=== PATIENT | male | born 1970 | race Caucasian/White ===

== ENCOUNTER 2021-09-01 18:03 | Emergency (ER) | payer OTHER ==
[~2021-09-01] VITALS: Ht 177.8 cm; Wt 93.0 kg
[~2021-09-01 18:03] MED LIST: ALTACE2.5 MG
[2021-09-01] MEDS ORDERED: OMEPRAZOLE 40 MG. (19:14)
[2021-09-01] MEDS ORDERED: DICY20TA (19:14)
== END 2021-09-02 10:17 | disposition home or self-care (01) ==
LOC: ER 18:03
DX: K51.919 Ulcerative colitis, unspecified with unspecified complications (principal); I10 Essential (primary) hypertension
CPT/HCPCS: 74177; Q9965